=== PATIENT | male | born 1980 | race Caucasian/White ===

== ENCOUNTER → 2021-08-03 | Day surgery (SDC) | payer OTHER ==
[~2021-08-03] VITALS: Ht 180.3 cm; Wt 97.1 kg
[~2021-08-03] MED LIST: NORCO 5-325 TA1 EACH PO; ONDANSETRON ODT8 MG PO
[2021-08-03 08:33] LABS: HCT 42.9 % (42.0-52.0); HGB 14.3 g/dl (13.2-18.0); MCHC 33.3 g/dL (32.0-36.0); MCV 89.9 fL (78.0-100.0); MPV 11.3 fL (6.0-9.5); RBC 4.77 M/uL (4.70-6.00); WBC 11.7 K/uL (4.0-10.5)
[2021-08-03 08:49] LABS: ALBUMIN 3.8 g/dL (3.4-5.0); BILIRUBIN - TOTAL 0.4 mg/dL (0.2-1.0); BUN/CREAT RATIO (CALC) 23.5 RATIO; CREATININE 0.81 mg/dL (0.67-1.17); GLOBULIN (CALCULATION) 3.1 g/dL; POTASSIUM 4.2 mmol/L (3.5-5.1); TOTAL PROTEIN 6.9 g/dL (6.4-8.2)
== END | disposition home or self-care (01) ==
LOC: FAS 07:58
PROVIDERS: Surgery
DX: K42.0 Umbilical hernia with obstruction, without gangrene (principal); Z72.0 Tobacco use
CPT/HCPCS: 36415; 80053; J0690; J1170; J1885; J2250; J2405; J2704; J3010; J7120